=== PATIENT | female | born 1965 | race Caucasian/White ===

== ENCOUNTER → 2016-09-09 | Outpatient (CLI) | payer OTHER ==
--- NOTE | 2016-09-09 15:07 | DI ---
RIGHT BREAST ULTRASOUND, 09/09/2016 1:01 PM: Clinical History: The patient indicated there is a pea-sized nodule that is noticeable by herself int ermittently. It is located in the right axillary region just posterior to the pectoralis major muscle . She indicated she has noted this nodule over a duration of approximately 20 years. The patient had screening mammograms of both breasts on 09/06/2016, which were normal and did image the approximate re gion of concern. It was actually outside of the area of any breast tissue. Scans are performed by the technologist and myself through all four quadrants of the right breast and right axilla with the high resolution linear array probe. Scans reveal no solid or cystic mass. Specifically, no lesion is seen in the quadrant of question. BIRADS Category: 1. Negative exam. Follow Up: Because this patient indicated that she has noticed this lesion for many years (20 years a ccording to the patient), I advised the patient to monitor the area in the lesion at least 3 and prob ably 4 times a year and to notify her physician promptly if any changes noted. Reading: The area of question is actually in the anterior aspect of the right axilla. Scans of this area show no solid or cystic lesion and are normal. There is no evidence of breast tissue in this area.
--- NOTE | 2016-09-11 16:50 | DI ---
PELVIC ULTRASOUND, 09/09/2016 1:01 PM Clinical History: Right ovarian cyst. Previous Exam: 04/08/2014. Technique: Transvaginal scans are performed. The uterus measures approximately 45 x 60 x 80 mm and has a solid inhomogeneous almost spherical lesi on along the lateral aspect of the right side of the uterus. This mass measures approximately 35 x 35 x 40 mm and does contain calcifications within it. It is consistent with a uterine fibroid that was present on the prior exam but has increased in size. The previous measurements were approximately 15 x 20 x 20 mm. The central uterine stripe cannot be definitively identified. There is a simple cyst of the right ovary that measures approximately 20 x 20 x 25 mm. The left ovary could not be identified. There are no fluid collections or masses. Readin. There is an inhomogeneous and predominantly hypoechoic mass in the right side of the body of the uterus measuring 35 x 35 x 40 mm. It contains calcifications within it and it has increased in size s darian the previous exam from 04/08/2014. This lesion is consistent with a uterine fibroid. The central uterine stripe could not be identified. 2. There is a 20 x 20 x 25 mm simple cyst of the right ovary. The left ovary could not be identified .
== END ==
LOC: US 12:50
PROVIDERS: ATTEND Obstetrics & Gynecology
DX: N83.201 Unspecified ovarian cyst, right side (principal); D25.9 Leiomyoma of uterus, unspecified; R22.31 Localized swelling, mass and lump, right upper limb
CPT/HCPCS: 76641; 76830

== ENCOUNTER 2016-09-22 07:18 | Day surgery (SDC) | payer OTHER ==
[~2016-09-22 07:18] MED LIST: LIDOCAINE W/ SODIUM BICARB 0.5 ML SYR ONE; Lactated Ringers 1,000 ML PRIMARY IV ONE; MIDAZOLAM 5 MG/1 ML ONE; fentaNYL Inj 100 MCG/2 ML VIAL ONE
[2016-09-22 07:40] VITALS: RESP 12
--- NOTE | 2016-09-22 08:31 | GEN.OPNOTE ---
Colonoscopy Procedure Note Surgery Date: 09/22/16 Preoperative Diagnosis: Family history of colon cancer. Postoperative Diagnosis: Family history of colon cancer. Procedure: Complete colonoscopy. Surgeon: Konrad Kay MD Anesthesia Provider: Aris León CRNA Anesthesia Type: MAC Indications: Patient's mother of colon cancer. It's been 9 years since her last colonoscopy and she is due for surveillance. Findings: Prep : [Fair with some retained solid particulate stool.] Cecum : [Normal] Ascending : [Normal] Transverse : [Normal] Sigmoid : [Normal] Rectum : [Normal] Digital Rectal Exam : [No significant perianal pathology.] A lubricated flexible colonoscope was inserted and passed to the blind end of the cecum. The blind end of the cecum and ileocecal valve were clearly seen. Air was aspirated as the scope was withdrawn. There is some retained particulate stool. Small polyps could've been missed but nothing of significance. There is no evidence of polyp, tumor, neoplastic mass, infectious or inflammatory process. There are a few scattered sigmoid diverticuli. The scope was withdrawn completing the procedure. Patient tolerated the procedure well without complication. She was taken to outpatient surgery in stable condition. Follow-up will be with my office on an as-needed basis. It is recommended she undergo follow-up colonoscopy in 5 years time.
[2016-09-22 09:09] VITALS: TEMP 97.7
== END 2016-09-22 09:03 | disposition home or self-care (01) ==
LOC: SDSC 07:18
PROVIDERS: ATTEND Surgery
DX: Z80.0 Family history of malignant neoplasm of digestive organs (principal)
CPT/HCPCS: 45378; J2704; J3010; J2250; J7120